=== PATIENT | male | born 1980 | race Two or more races ===

== ENCOUNTER 2019-04-15 19:43 | Emergency (ER) | payer BC ==
[~2019-04-15] VITALS: Ht 170.2 cm; Wt 95.3 kg
--- NOTE | 2019-04-15 20:10 | Emergency Room Report ---
History of Present Illness General Chief Complaint: Lower Extremity Injury Source: Patient Present Illness HPI Patient is a 38-year-old male presents after increased redness to the right lower extremity. This is been present for approximately 2 weeks. He noticed this gradually changing in color a little bit. Had prior history of type 2 diabetes but is off of his medications. He states he is fairly noncompliant with his diet. Denies any recent fever. Reports having no drainage or discharge from the area. Reports having some prior history of neuropathy. Allergies: Coded Allergies: No Known Allergies (Unverified , 04/15/19) Patient History Past Medical History: see triage record Reviewed Nursing Documentation: PMH: Agreed; PSxH: Agreed Nursing Documentation-PMH Hx Diabetes: Yes Review of Systems All Other Systems: negative except mentioned in HPI Physical Exam Vital Signs Date Time Temp Pulse Resp B/P (MAP) Pulse Ox O2 Delivery O2 Flow Rate FiO2 04/15/19 19:51 98.2 78 19 143/96 (112) 97 Room Air General Appearance: well appearing, no apparent distress, alert, GCS 15 Head: normocephalic, atraumatic ENT: hearing grossly normal, normal voice Neck: full range of motion, supple Respiratory: lungs clear, normal breath sounds, no respiratory distress, speaking full sentences Cardiovascular #1: normal inspection, regular rate, rhythm, no edema Musculoskeletal: no calf tenderness, other - left leg Neurologic: alert, motor strength/tone normal, digital marketing assistant III-XII nml as tested, oriented x3, normal gait Psychiatric: mood/affect normal Skin: no rash, other - left leg posterior scar with minimal surrounding erythema Medical Decision Making Diagnostic Impression: Primary Impression: Type 2 diabetes mellitus Additional Impression: Pressure ulcer ER Course Presented for left lower extremity wound. Differential diagnosis include was not limited to pressure sore, ulcer, cellulitis among others. Patient has a benign exam and does not appear to require any imaging or laboratory testing at this time. Patient has what appears to be a skin sore to the area slightly above the left Achilles. This appears to be likely related to use of boots. Patient was advised to use a low top shoes. Sugar was noted to be elevated and he was given metformin. Declined insulin. He was also given prescription for antibiotics and metformina and advised to follow-up with his primary care physician for recheck. He is advised to return if worse. The patient is advised to follow up with primary care doctor in 1-2 days. Patient is advised to return if any worsening condition or if any changes in status that are concerning. This report is dictated with [employer] screw machine tool setter software which may occasionally lead to discrepancies related to use of this software. Last Vital Signs Date Time Temp Pulse Resp B/P (MAP) Pulse Ox O2 Delivery O2 Flow Rate FiO2 04/15/19 19:51 98.2 78 19 143/96 (112) 97 Room Air Status: improved Disposition: HOME, SELF-CARE Condition: Stable Scripts Bacitracin Zinc* (BACITRACIN ZINC*) 1 Each Packet 1 APPLIC TOPIC THREE TIMES A DAY, #30 PACKET Prov: Vazquez Solomon MD 04/15/19 Trimethoprim/Sulfamethoxazole 160/800* (BACTRIM DS TABLET*) 1 Each Tablet 1 TAB ORAL TWICE A DAY, #20 TAB Prov: Vazquez Solomon MD 04/15/19 Metformin Hcl* (METFORMIN HCL*) 500 Mg Tablet 500 MG ORAL TWICE A DAY, #60 TAB Prov: Vazquez Solomon MD 04/15/19 Vazquez Solomon MD Apr 15, 2019 20:10
[2019-04-15] MEDS ORDERED: metFORMIN 500mg tab ORAL ONE (20:15)
[2019-04-15] MEDS ORDERED: Bactrim-DS 1 tab ORAL ONE (20:15)
[2019-04-15] MEDS ORDERED: Insulin Human Regular 100units/ml 3ml SUBQ ONE (20:15)
[2019-04-15] MEDS ORDERED: BACITRACIN ZIN1 EACH TOPIC (20:16)
[2019-04-15] MEDS ORDERED: METFORMIN HCL500 M1 ORAL (20:16)
[2019-04-15] MEDS ORDERED: BACTRIM DS TAB1 EAC1 ORAL (20:16)
--- NOTE | 2019-04-15 20:35 | NUR ---
ER DISCHARGE NOTE: Patient is cleared to be discharged per ERMD, pt is aox4, on room air, with stable vital signs. pt was given dc and prescription instructions, pt was able to verbalize understanding, pt id band removed without complications. pt is able to ambulate with steady gait. pt took all belongings.
[2019-04-15 20:39] VITALS: BP 143/96
== END 2019-04-15 20:39 | disposition home or self-care (01) ==
LOC: EMR 20:39
DX: E11.9 Type 2 diabetes mellitus without complications (principal)
CPT/HCPCS: 99282